=== PATIENT | male | born 1955 | race Caucasian/White ===

== ENCOUNTER 2020-09-10 05:17 | Emergency (ER) | payer OTHER ==
[~2020-09-10] VITALS: Ht 182.9 cm; Wt 102.3 kg
--- NOTE | 2020-09-10 05:49 | PHYS DOC ---
Past Medical History Past Medical History: CAD, Diabetes-Type II, HIV, Hypertension Past Medical History Poor historian (CHRISTOPHER GALAN DO) Past Surgical History: Coronary Bypass Surgery Additional Past Surgical Histo: Gtube 08/24, left BKA Past Surgical History Poor historian (CHRISTOPHER GALAN DO) Smoking Status: Unknown if ever smoked Alcohol Use: None Drug Use: None Social History Poor historian (CHRISTOPHER GALAN DO) General Adult EDM: Chief Complaint: PEG tube displacement HPI: HPI: Patient is a 65 year old male who presents with PEG tube being pulled out. Patient reports not remembering what happened to the tube. Patient is poor historian. Report per staff at [facility] say tube was removed sometime between 02:00-04:00 this morning as they rounded at 02:[address] in [address] then. Tube was initially placed on 08/24/2020 at . Patient denies pain or discomfort. (CHRISTOPHER GALAN DO) Review of Systems: Review of Systems: Unable to obtain ROS due to patient being poor historian. (CHRISTOPHER GALAN DO) Physical Exam: PE: Constitutional: Well developed, well nourished, no acute distress, non-toxic appearance HENT: Normocephalic, atraumatic Eyes: Conjunctiva normal, no discharge Neck: Normal range of motion, no tenderness, supple Lungs & Thorax: No respiratory distress, equal chest rise and fall, large vertical surgical scar noted on chest Abdomen: Soft, no tenderness, centrally located PEG tube placement site with mild surrounding erythema, scars as noted below Skin: Warm, dry, no erythema, no rash, multiple linear healed scars noted on abdomen Extremities: No tenderness, no edema, rigid left UE Neurologic: Alert and oriented, no focal deficits noted (CHRISTOPHER GALNA DO) Radiology/Procedures: Radiology/Procedures: [] (CHRISTOPHER GALAN DO) Radiology/Procedures: [facility] [address] [place], [place] [id number] IMAGING REPORT Signed PATIENT: MARGO LI ACCOUNT: [id number] : 1955 LOCATION: ER AGE: 65 SEX: M EXAM STATUS: REG ER ORD. PHYSICIAN: CHRISTOPHER GALAN DO REASON: Gtube replacement, eval for position PROCEDURE: KUB KUB INDICATION: Gtube replacement, eval for position / Spl. Instructions: / History: . COMPARISON: None. TECHNIQUE: Supine view of the abdomen was obtained. FINDINGS: Nonobstructive bowel gas pattern. No free air on this limited supine image. Contrast administered via the patient's gastrostomy tube enters the stomach. Limited view of the lower chest demonstrates no acute abnormality. No acute osseous abnormality. IMPRESSION: Contrast administered via the patient's gastrostomy tube enters the stomach. Electronically signed by: Clarence Chavez MD (09/10/2020 7:19 AM) [id number] DICTATED and SIGNED BY: CLARENCE CHAVEZ MD DATE: 09/10/20 [id number] (RUPERTO COBOS DO) Course & Med Decision Making: Course & Med Decision Making Pertinent Imaging studies reviewed. (See chart for details) Patient is a 65 year old male presenting with PEG tube being pulled out. PEG tube replaced as noted in chart. Placement confirmed via XR pending. Sign out given to Dr. Cobos for follow-up on KUB with contrast administration for placement confirmation. Patient stable for discharge back to [facility] with outpatient follow-up with PCP/GI. (CHRISTOPHER GALAN DO) Dragon Disclaimer: Dragon Disclaimer: This electronic medical record was generated, in whole or in part, using a voice recognition dictation system. (CHRISTOPHER GALAN DO) Departure Departure Impression: Primary Impression: PEG (percutaneous endoscopic gastrostomy) adjustment/replacement/removal Disposition: 01 DC HOME SELF CARE/HOMELESS Condition: IMPROVED Referrals: MARIMAR LOZOYA (PCP) Patient Instructions: Gastric Tube Replacement Additional Procedures Additional Procedures : Additional Procedures: gastric tube replacement Progress Verbal consent obtained. Time out performed. Hand hygiene utilized. Wound cleaned with ChloraPrep. Insertion of 18 Ni[place]an PEG tube performed with direct pressure and balloon filled with 20cc normal saline. Patient tolerated procedure well and without difficulty. Placement to be confirmed with abdominal x-ray and contrast administration. (CHRISTOPHER GALAN DO) CHRISTOPHER GALAN DO Sep 10, 2020 05:49 RUPERTO COBOS DO Sep 10, 2020 07:45
[2020-09-10] MEDS ORDERED: CONTRAST GIVEN. MC PRN (06:45)
[2020-09-10] MEDS ORDERED: IOHEXOL 300 MG/ML 50 ML VIAL. PO ONE (07:00)
--- NOTE | 2020-09-10 07:22 | RAD ---
KUB INDICATION: Gtube replacement, eval for position / Spl. Instructions: / History: . COMPARISON: None. TECHNIQUE: Supine view of the abdomen was obtained. FINDINGS: Nonobstructive bowel gas pattern. No free air on this limited supine image. Contrast administered via the patient's gastrostomy tube enters the stomach. Limited view of the lower chest demonstrates no acute abnormality. No acute osseous abnormality. IMPRESSION: Contrast administered via the patient's gastrostomy tube enters the stomach. Electronically signed by: Francis Chavez MD (09/10/2020 7:19 AM) [id number]
[2020-09-10 09:23] VITALS: BP 133/89
== END 2020-09-10 09:39 | disposition home or self-care (01) ==
LOC: ER 05:23
DX: K94.23 Gastrostomy malfunction (principal); E11.9 Type 2 diabetes mellitus without complications; I10 Essential (primary) hypertension; I25.10 Atherosclerotic heart disease of native coronary artery without angina pectoris; Z95.1 Presence of aortocoronary bypass graft; Y83.8 Other surgical procedures as the cause of abnormal reaction of the patient, or of later complication, without mention of misadventure at the time of the procedure
CPT/HCPCS: 43762; 74018; 99285; Q9967